=== PATIENT | male | born 1950 | race Caucasian/White ===

== ENCOUNTER → 2017-01-01 | Day surgery (SDC) | payer MEDICARE ==
[~2017-01-01] VITALS: Ht 180.3 cm; Wt 77.0 kg
[~2017-01-01] MED LIST: ASCO-294 PO; ASPI-973 PO; LISI10TA PO; Sodium Chloride LOK Flush 10 mL Syringe IV PRN; VITA600C3 PO; fentaNYL-PF 50 mCg/mL 2 mL Inj IVPUSH PRN
[2017-01-01 15:21] VITALS: BP 157/87; PULSE 50; RESP 15; O2SAT 99
[2017-01-01] MEDS: 0.9% Sodium Chloride 1,000 ML IV SCH ×2 (16:35→18:13)
[2017-01-01 17:52] VITALS: BP 121/76; PULSE 46; RESP 12; O2SAT 99
--- NOTE | 2017-01-01 21:26 | ENDO ---
[address] [address] ENDOSCOPY PROCEDURE PATIENT: CHARITO FITZPATRICK : 1950 MR#: [id number] ADMIT: 01/01/2017 JOB ID: [id number] DATE: 01/01/2017 PROCEDURE PERFORMED: Esophagogastroduodenoscopy. INDICATION: Variceal screening. Patient's ASA classification is II. Mallampati score is II. Please see nurse's notes for details of the doses of Versed and fentanyl. INSTRUMENT USED: [id number]. PROCEDURE DETAILS: After informed consent was obtained, the patient was brought into the GI suite, where he was placed on oxygen via nasal cannula and monitored with continuous pulse oximeter, telemetry, and blood pressure monitoring. A time-out was performed. Then, he was placed in the left lateral decubitus position and medications were administered for sedation. A bite block was placed. The standard EGD scope was inserted through the bite block and advanced under direct visualization to the second portion of the duodenum without difficulty. FINDINGS: 1. Normal-appearing duodenal bulb, first and second portion. 2. Normal-appearing pylorus and antrum. 3. The body appeared to have a mosaic appearance suggestive of portal gastropathy. 4. Retroflexed views in the gastric body revealed mild hemorrhagic portal gastropathy in the fundus. 5. Normal-appearing GE junction with regular Z-line. 6. Normal-appearing esophagus without any esophageal varices. IMPRESSION: Portal gastropathy. RECOMMENDATIONS: 1. Repeat the EGD in one year. 2. Proceed to colonoscopy. COMPLICATIONS: None. ESTIMATED BLOOD LOSS: Zero. PROCEDURE PERFORMED: Colonoscopy. INDICATION: Colon cancer screening. Please see above for ASA classification, Mallampati score, and medications. INSTRUMENT USED: [id number]-H180AL. PREPARATION QUALITY: Fair. PROCEDURE DETAILS: After completion of the EGD exam, the patient was then turned and digital rectal exam was performed, which was unremarkable. Colonoscope was then inserted into the rectum and advanced under direct visualization to the cecum, which was identified by the presence of the ileocecal valve and the appendiceal orifice. Once the cecum was reached, the colonoscope was withdrawn back into the rectum as the mucosa and lumen were examined. In the rectum, retroflexion was performed. Following retroflexion, remaining air in the rectum was suctioned, and procedure was completed. FINDINGS: In the ascending colon, there was an approximately 1.5 cm x 1 cm flat polyp. The polyp was partially lifted using normal saline and then removed in a piecemeal fashion with a hot snare. The resulting mucosal defect was approximated with the placement of one hemoclip. The polyp pieces were retrieved with a Amador net and withdrawn from the rectum. The remainder of the colon appeared otherwise unremarkable. IMPRESSION: Flat ascending colon polyp. RECOMMENDATIONS: 1. Avoid NSAIDs and anticoagulants for five days. 2. Repeat colonoscopy in three months. 3. Follow up in GI clinic. COMPLICATIONS: None. ESTIMATED BLOOD LOSS: Less than 5 mL.
--- NOTE | 2017-01-06 18:13 | PATH ---
SURGICAL PATHOLOGY Attending Physician:Aden Whitaker CASE STATUS: Signed Out PATIENT NAME: CHARITO FITZPATRICK PID: [id number] : 1950 DATE COLLECTED:01/01/2017 00:00 SPECIMEN: Colon, Polyp CLINICAL HISTORY: 1). ASCENDING COLON POLYP FINAL DIAGNOSIS: Ascending Colon Polyp, Biopsy: Tubulovillous adenoma. No evidence of malignancy or high-grade dysplasia. ICD10: D12.2 GROSS DESCRIPTION: The specimen is received in one formalin filled container labeled with the patient's name, sublabeled "ascending colon polyp" and consists of multiple portions of tissue which aggregate to 0.7 x 0.6 x 0.6 CM. The specimen is filtered and entirely submitted in one cassette. 01/04/2017DC ICD-9 CODES: CPT CODES: 1: 04722 Electronically Signed Out Alexia Latham MD Formerly [facility] Pathology [facility] [address], [place] [address] Technical component performed at [facility], [facility] [address], [place], [address]
== END | disposition home or self-care (01) ==
LOC: END 00:09
PROVIDERS: ATTEND Internal Medicine Gastroenterology
DX: Z12.11 Encounter for screening for malignant neoplasm of colon (principal); D12.2 Benign neoplasm of ascending colon; K31.89 Other diseases of stomach and duodenum; K76.6 Portal hypertension; I10 Essential (primary) hypertension; B18.2 Chronic viral hepatitis C
CPT/HCPCS: 43235; 45381; 45385; 99153; G0500; J2250; J3010; J7030